=== PATIENT | female | born 1955 | race Caucasian/White ===

== ENCOUNTER 2018-04-03 20:26 | Emergency (ER) | payer OTHER ==
[2018-04-03 20:29] VITALS: BP 138/69
[2018-04-03] MEDS ORDERED: PHENAZOPYRIDINE HCL 200 MG TAB PO ONE (20:58)
[2018-04-03 21:22] LABS: PLATELET COUNT 212 10^3/uL (150-400)
[2018-04-03] MEDS ORDERED: CEPHALEXIN 500 MG CAP PO ONE (21:25)
--- NOTE | 2018-04-03 21:28 | EDPHY ---
H & P Stated Complaint: hematuria and frequency Time Seen by Provider: 04/03/18 20:34 HPI/ROS: CHIEF COMPLAINT: Dysuria, urinary frequency HISTORY OF PRESENT ILLNESS: 63-year-old female presents with dysuria and urinary frequency. Onset of moderate dysuria 2 hr ago. Associated with urinary frequency and gross hematuria. No abdominal pain, flank pain, fever or vomiting. No prior history of urinary tract infection. REVIEW OF SYSTEMS: complete 10 point ROS reviewed and is negative except for the noted elements in the HPI - Personal History Current Tetanus/Diphtheria Vaccine: Yes Current Tetanus Diphtheria and Acellular Pertussis (TDAP): Yes - Medical/Surgical History Hx Asthma: No Hx Chronic Respiratory Disease: No Hx Diabetes: No Hx Cardiac Disease: No Hx Renal Disease: No Hx Cirrhosis: No Hx Alcoholism: No Hx HIV/AIDS: No Hx Splenectomy or Spleen Trauma: No Other PMH: d and C - Social History Smoking Status: Never smoked Additional Social History: - Physical Exam Exam: General Appearance: Alert, pleasant Eyes: Pupils equal and round, no conjunctival pallor ENT, Mouth: Mucous membranes moist Neck: Normal inspection Respiratory: Lungs are clear to auscultation Cardiovascular: Regular rate and rhythm Gastrointestinal: Abdomen is soft and nontender Neurological: A&O, nonfocal, normal gait Skin: Warm and dry, no rash Extremities: Normal inspection Psychiatric: Mood and affect normal Constitutional: Initial Vital Signs Temperature (C) 36.8 C 04/03/18 20:26 Heart Rate 84 04/03/18 20:26 Respiratory Rate 16 04/03/18 20:26 Blood Pressure 138/69 H 04/03/18 20:26 O2 Sat (%) 97 04/03/18 20:26 O2 Delivery Mode Room Air Allergies/Adverse Reactions: codeine Allergy (Verified 04/03/18 20:30) Home Medications: Medication Instructions Recorded Boric Acid 04/03/18 Cephalexin [Keflex (*)] 500 mg PO TID #15 cap 04/03/18 Fluconazole [Diflucan] 200 mg PO ONCE #2 tablet 04/03/18 Phenazopyridine HCl [Pyridium] 200 mg PO TID #6 tab 04/03/18 Medical Decision Making ED Course/Re-evaluation: Urinalysis consistent with UTI. Keflex 500 mg orally given. A urine culture was sent. Pyridium 200 mg orally given with relief in dysuria. Fluconazole given because of recurrent yeast infections. Differential Diagnosis: Includes though not limited to kidney stone, pyelonephritis, interstitial cystitis, UTI - Data Points Laboratory Results: Laboratory Results 04/03/18 21:10 04/03/18 21:10 Microbiology Results: MICROBIOLOGY 04/03/18 20:40 Urine,Clean Catch Urine Culture - Final Escherichia Coli Medications Given: Discontinued Medications Cephalexin HCl (Keflex) 500 mg PO EDNOW ONE PRN Reason: Protocol Stop: 04/03/18 21:26 Last Admin: 04/03/18 21:41 Dose: 500 mg Phenazopyridine HCl (Pyridium) 200 mg PO EDNOW ONE Stop: 04/03/18 20:59 Last Admin: 04/03/18 20:59 Dose: 200 mg Departure - Departure Disposition: Home, Routine, Self-Care Clinical Impression: Urinary tract infection Condition: Good Instructions: Urinary Tract Infection in Women (ED) Referrals: YASHIRA LEPE [Other] - As per Instructions Prescriptions: Cephalexin [Keflex (*)] 500 mg PO TID #15 cap Fluconazole [Diflucan] 200 mg PO ONCE #2 tablet Phenazopyridine HCl [Pyridium] 200 mg PO TID #6 tab
== END 2018-04-03 21:43 | disposition home or self-care (01) ==
DX: N39.0 Urinary tract infection, site not specified (principal)